=== PATIENT | male | born 1945 | race Caucasian/White ===

== ENCOUNTER 2023-05-03 09:19 | Day surgery (SDC) | payer OTHER ==
[~2023-05-03] VITALS: Ht 175.3 cm; Wt 87.5 kg
[~2023-05-03 09:19] MED LIST: ASPI-1197 PO; ATEN25TA PO; CYAN-118 PO; LOSA50TA64 PO; PANT40TA54 PO; PREVAGEN PO; PYRI50TA11 PO; ROSU20TA73 PO; TICA90TA PO
[2023-05-03 10:45] VITALS: BP 171/85; PULSE 54; RESP 15
[2023-05-03] MEDS: 0.9%NACL 1000ML 1,000 ML IV ONE (11:56)
[2023-05-03] MEDS ORDERED: PROPOFOL 10 MG/ML 20ML VIAL IV ONE (14:01)
== END 2023-05-03 14:58 | disposition home or self-care (01) ==
LOC: DAH 09:19 → ENDO 09:19
PROVIDERS: ATTEND Internal Medicine Gastroenterology
DX: K52.9 Noninfective gastroenteritis and colitis, unspecified (principal); K63.5 Polyp of colon; K57.30 Diverticulosis of large intestine without perforation or abscess without bleeding; I10 Essential (primary) hypertension; I25.10 Atherosclerotic heart disease of native coronary artery without angina pectoris; I25.2 Old myocardial infarction; F41.9 Anxiety disorder, unspecified; E78.5 Hyperlipidemia, unspecified; K21.9 Gastro-esophageal reflux disease without esophagitis; Z79.899 Other long term (current) drug therapy; Z88.0 Allergy status to penicillin; Z95.5 Presence of coronary angioplasty implant and graft; Z98.890 Other specified postprocedural states; Z98.49 Cataract extraction status, unspecified eye; Z86.010 Personal history of colon polyps
CPT/HCPCS: 45380; 45385; J7030 ×2; J2704; A4620; A4215 ×2; A4223; A7002; A4222; A4221; A4663; A4606; J3490

== ENCOUNTER → 2025-02-11 | Outpatient (CLI) | payer OTHER ==
[~2025-02-11] MED LIST changes: +CYAN-106 PO; -CYAN-118 PO; -ROSU20TA73 PO; +ROSU20TA98 PO
--- NOTE | 2025-02-11 13:16 | HMCIMG ---
EXAM: US Abdomen Limited, Right Upper Quadrant. CLINICAL HISTORY: Abnormal liver function tests TECHNIQUE: Real-time ultrasound of the right upper quadrant with image documentation. COMPARISON: None provided. FINDINGS: LIVER: The liver is relatively small in size, measuring about 11 cm (this could be attributed to the age of the patient). No definite focal lesions. GALLBLADDER: The gallbladder is contracted with average wall thickness of 3 mm. No gallstone. No pericholecystic fluid. COMMON BILE DUCT: The common bile duct measures about 7 mm. No IHBRD. PANCREAS: No definite abnormality is seen at the visualized part of the pancreas. The tail is obscured by overlying bowel gas. RIGHT KIDNEY: The right kidney measures 8.9 x 5.5 x 4.5 cm with a small simple cortical renal cyst measuring 17 x 17 x 15 mm. No hydronephrosis. IMPRESSION: 1. Contracted gallbladder with average wall thickness of 3 mm 2. Common bile duct measures about 7 mm 3. A right small simple cortical renal cyst,categorized as Bosniak I . /Prentiss
== END | disposition home or self-care (01) ==
LOC: RAH 12-31 09:45
PROVIDERS: ATTEND Family Medicine
DX: N28.1 Cyst of kidney, acquired (principal); R94.5 Abnormal results of liver function studies
CPT/HCPCS: 76705